=== PATIENT | female | born 1985 | race Caucasian/White ===

== ENCOUNTER 2019-10-07 18:14 | Emergency (ER) | payer SELFPAY ==
[2019-10-07 18:31] VITALS: BP 119/82; PULSE 97; RESP 18; TEMP 36.9; O2SAT 98; BMI 33.6
--- NOTE | 2019-10-07 19:03 | W.ED.HA ---
Documented by User: ALYSSA Ellsworth 10/08/19 13:52 HPI - Headache General: Chief Complaint: Headache Stated Complaint: migraine/throwing up/dizzy Time Seen by Provider: 10/07/19 18:58 History of Present Illness: HPI Narrative: Patient is a 33-year-old female who comes to the ED with a migraine. Patient has a past medical history of having migraines. Migraine started last night and came on slowly and is just progressively gotten worse. She describes the migraine pain 9 out of 10. She says that it is retro-orbital to the right eye. She has photophobia and she sees an aura when she closes her eyes. She has nausea and has been vomiting multiple times today. She says she feels generalized weakness and feels dizzy getting up and walking around due to the headache. Denies any numbness or tingling to extremities or any weakness to particular extremity. Denies any vision changes. Associated symptoms: Deny chest pain, fever(s), nausea, rash or vomiting Review of Systems Const: Denies: fever, chills or fatigue Eyes: Reports: photophobia; Denies: change in vision or eye discomfort ENMT: Denies: throat pain, painful swallowing, nasal discharge or nasal congestion Card: Denies: chest pain, palpitations, edema, swelling of feet/ankles, shortness of breath on exertion or shortness of breath when lying down Resp: Denies: shortness of breath, productive cough or non-productive cough GI: Denies: abdominal pain, nausea, vomiting, diarrhea, constipation or blood in stool : Denies: flank pain, painful urination or blood in urine Musc: Denies: neck pain, back pain or extremity swelling Skin/Breast: Denies: rash or new lesion Neuro: Reports: headache (migraine 9 out of 10); Denies: numbness in extremities or weakness in extremities [facility] ED PFSH: Social History Smoking and tobacco status: never smoked Physical Exam Narrative: EXAM NARRATIVE: Patient is a 33-year-old female who is sitting with sunglasses on when I entered the room. Const: COMMON NORMALS: oriented x3 HENMT: COMMON NORMALS: normocephalic HEAD & SCALP: normocephalic MOUTH: oral and palatal mucosa normal THROAT: posterior oropharynx normal and uvula midline Eye: COMMON NORMALS: PERRL, EOMs intact bilaterally and normal visual [place] by confrontation PUPIL: Yes PERRL Neck/C-Spine: COMMON NORMALS: supple GENERAL: Yes normal visual inspection Resp: COMMON NORMALS: normal respiratory effort, no retractions, no use of accessory muscles and clear to auscultation bilaterally AUSCULTATION: clear to auscultation bilaterally Cardio: COMMON NORMALS: regular rate, regular rhythm, S1 normal heart sound, S2 normal heart sound, no gallops, no clicks, no murmurs and peripheral pulses 2+ throughout RATE: regular rate RHYTHM: regular rhythm HEART SOUNDS: S1 normal and S2 normal PERIPHERAL PULSES: pulses 2+ throughout GI: COMMON NORMALS: normal to inspection, nondistended, normoactive bowel sounds, soft to palpation, non-tender and no masses PALPATION: Yes soft : COMMON NORMALS: Yes no CVA tenderness BLADDER/KIDNEY EXAM: Yes no CVA tenderness Back/Pelvis: COMMON NORMALS: no CVA tenderness Extremity: COMMON NORMALS: normal to inspection Neuro: COMMON NORMALS: oriented x3, CN's II-XII intact bilaterally, moves all extremities, no focal motor deficits and no sensory deficits noted SENSORY EXAM: Yes extremities (intact) MOTOR EXAM: strength 5/5 throughout Skin: COMMON NORMALS: no rashes or lesions noted GENERAL SKIN EXAM: no rashes or lesions noted and dry skin Course Reevaluation(s): Reevaluation #1: I checked on the patient and had her reevaluate her migraine after treatment. Patient says her migraine has improved greatly and now she rates it a 1 out of 10. It was initially a 9 out of 10 when she came in. Time: 20:20 Vital Signs: Vital signs: Vital Signs Temperature 98.4 F 10/07/19 18:31 Pulse Rate 82 10/07/19 20:28 Respiratory Rate 18 10/07/19 20:28 Blood Pressure 136/74 10/07/19 20:28 Pulse Oximetry 98 10/07/19 20:28 Discharge Plan Discharge Patient Disposition: Home, Self-Care Clinical Impression: Migraine Qualifiers: Migraine type: with aura Status migrainosus presence: without status migrainosus Intractability: not intractable Qualified Code(s): G43.109 - Migraine with aura, not intractable, without status migrainosus Condition: Stable Discharge Orders: Discharge Order (Routine); Ordered 10/07/19 Ordered By: Chavo Germain Referrals: Norma Reyna DO [Primary Care Provider] - Discharge Diet: Regular Discharge Activity: Resume usual activity Patient Instructions: Headache - Migraine (Adult) Activity Restrictions/Additional Instructions: Follow-up with your PCP in 5 to 7 days for reevaluation. Go home and rest tonight. Take any Tylenol or ibuprofen for any headaches. Drink plenty of fluids and stay hydrated. Return to the ED if symptoms worsen. Discharge Date/Time: 10/07/19 20:30 Coding Level of Care Code ED Quality Control Inspector for Chg Fwd Exam Comprehensive Documented by User: Lucille Beck 10/08/19 17:29 HPI - Headache General: Chief Complaint: Headache Stated Complaint: migraine/throwing up/dizzy Time Seen by Provider: 10/07/19 18:58 PFSH ED PFSH: Social History Smoking and tobacco status: never smoked Course Vital Signs: Vital signs: Vital Signs Temperature 98.4 F 10/07/19 18:31 Pulse Rate 82 10/07/19 20:28 Respiratory Rate 18 10/07/19 20:28 Blood Pressure 136/74 10/07/19 20:28 Pulse Oximetry 98 10/07/19 20:28 MDM - Headache MDM Narrative: Medical decision making narrative: This patient was not seen by me nor evaluated by me nor discussed with me by the midlevel provider. I was available in the ER if needed throughout their stay but was not involved or contacted about their care. I am signing this chart per hospital policy ? Dr. Beck. Discharge Plan Discharge Patient Disposition: Home, Self-Care Clinical Impression: Migraine Qualifiers: Migraine type: with aura Status migrainosus presence: without status migrainosus Intractability: not intractable Qualified Code(s): G43.109 - Migraine with aura, not intractable, without status migrainosus Condition: Stable Discharge Orders: Discharge Order (Routine); Ordered 10/07/19 Ordered By: Chavo Germain Referrals: Norma Reyna DO [Primary Care Provider] - Discharge Diet: Regular Discharge Activity: Resume usual activity Patient Instructions: Headache - Migraine (Adult) Activity Restrictions/Additional Instructions: Follow-up with your PCP in 5 to 7 days for reevaluation. Go home and rest tonight. Take any Tylenol or ibuprofen for any headaches. Drink plenty of fluids and stay hydrated. Return to the ED if symptoms worsen. Discharge Date/Time: 10/07/19 20:30 Coding Level of Care Code ED Quality Control Inspector for Kyle Fwsydnee Exam Comprehensive
[2019-10-07] MEDS: sodium chloride 0.9% 1,000 ML 999 ML IV (19:34)
[2019-10-07] MEDS: metoclopramide 5 mg/mL SDV 2 mL 10 MG IVP (19:36)
[2019-10-07] MEDS: dexamethasone 10 mg/mL INJ IVP (19:37)
[2019-10-07] MEDS: ketorolac 30 mg/mL INJ IVP (19:37)
[2019-10-07] MEDS: diphenhydrAMINE 50 mg/mL SDV 1mL 25 MG IVP (19:37)
[2019-10-07 20:28] VITALS: BP 136/74; PULSE 82; RESP 18; O2SAT 98
== END 2019-10-07 20:30 | disposition home or self-care (01) ==
LOC: ER 19:30
PROVIDERS: Emergency Provider Physician Assistant; Family Provider Family Medicine; PCP Family Medicine
DX: G43.909 Migraine, unspecified, not intractable, without status migrainosus (principal)
CPT/HCPCS: 12345; 96361; 96374; 96375; 99282; 99283; J1100; J1200; J1885; J2765; J7030

== ENCOUNTER 2020-06-25 04:45 | Emergency (ER) | payer SELFPAY ==
[2020-06-25 04:59] VITALS: BP 123/91; PULSE 82; RESP 19; TEMP 36.4; O2SAT 100; BMI 33.6
--- NOTE | 2020-06-25 05:10 | XRR_ITS ---
PROCEDURE INFORMATION: Exam: XR Chest, 1 View Exam date and time: 06/25/2020 5:37 AM Age: 34 years old Clinical indication: Cough; Additional info: Cough, covid R/O TECHNIQUE: Imaging protocol: XR of the chest Views: 1 view. COMPARISON: CR Chest 2 views* [id number] 09/19/2018 10:35 AM FINDINGS: Lungs: Unremarkable. No consolidation. Pleural space: Unremarkable. No pleural effusion. No pneumothorax. Heart/Mediastinum: Unremarkable. No cardiomegaly. Bones/joints: Unremarkable. XR/XR chest 1V portable [id number] IMPRESSION: No acute findings.
--- NOTE | 2020-06-25 05:12 | ED_ITS ---
Documented by User: Huong Garcia MD 06/27/20 06:14 HPI - COVID General: Chief Complaint: COVID symptoms Stated Complaint: Cov symtoms Time Seen by Provider: 06/25/20 04:59 Triage information: Has fever, cough or shortness of breath . No known COVID + exposure last 14 days History of Present Illness: HPI Narrative: This patient is a 34-year-old female who presents today with cough. She developed body aches, fever cough, diarrhea starting on Monday night. On Monday she had worsening cough and shortness of breath. She feels like she cannot breathe. She feels like she is going through up from coughing so hard. She has not had any known exposures to Covid. She is not a smoker. She does not have any history of diabetes or hypertension. She does get bronchitis frequently and has had to use inhalers in the past. complaint: has COVID symptoms Prior covid testing: no COVID 19 common symptoms: positive fever(s), chills, cough, non-productive cough, dyspnea, fatigue, body aches, headache(s) and diarrhea COVID 19 other sytmptoms: positive chest pain Onset (ago): day(s) (5) Severity: moderate COVID Results: Nasal/Oral Coronavirus 2019 PCR Pending 06/25/20 05:34 06/25/20 Review of Systems General: Reports: 10 or more systems reviewed and unremarkable except in HPI and below Const: Reports: fever(s), chills, body aches and fatigue Eyes: Denies: change in vision ENMT: Denies: odynophagia Card: Reports: chest pain Resp: Reports: dyspnea and non-productive cough GI: Reports: diarrhea : Denies: flank pain or difficulty voiding Musc: Denies: neck pain or back pain Skin/Breast: Denies: rash Neuro: Reports: headache(s) Pete/Lymph: Denies: easy bruising or easy bleeding PFSH ED PFSH: Social History Smoking and tobacco status: never smoked Physical Exam Const: COMMON NORMALS: no acute distress, patient oriented x3, no limitations and alert GENERAL APPEARANCE: cooperative and comfortable HENMT: HEAD & SCALP: normal to inspection FACE & SINUS: normal facial exam Eye: GENERAL EYE: appearance normal, both eyes and all related structures Neck/C-Spine: COMMON NORMALS: supple, no meningeal signs and no JVD Chest: COMMONS NORMALS: normal inspection of the chest Resp: COMMON NORMALS: normal respiratory effort, No use of accessory muscles and clear to auscultation bilaterally AUSCULTATION: clear to auscultation bilaterally Cardio: COMMON NORMALS: no JVD, regular rate, regular rhythm and No murmurs present (Cardio) RATE: regular rate RHYTHM: regular rhythm GI: COMMON NORMALS: Normal to inspection, nondistended, normoactive bowel sounds present, Soft to palpation and non-tender INSPECTION: Yes normal to inspection AUSCULTATION: Yes normoactive bowel sounds PALPATION: Yes Soft to palpation Back/Pelvis: COMMON NORMALS: thoracic and lumbar spine normal to inspection Extremity: COMMON NORMALS: normal to inspection Neuro: COMMON NORMALS: patient oriented x3, moves all extremities, no focal motor deficits and no sensory deficits noted SENSORIUM/ORIENTATION: Yes alert MENINGEAL SIGNS: Yes no meningeal signs Psych: COMMON NORMALS: mental status grossly normal, cooperative and normal affect Skin: COMMON NORMALS: no rashes or lesions noted and turgor normal GENERAL SKIN EXAM: no rashes or lesions noted and turgor normal Course Vital Signs: Vital signs: Vital Signs Temperature 97.6 F 06/25/20 04:59 Pulse Rate 97 06/25/20 06:35 Respiratory Rate 18 06/25/20 05:35 Blood Pressure 130/81 06/25/20 06:35 Pulse Oximetry 98 06/25/20 06:35 MDM - COVID 2 Lab Data: Labs: Lab Results 06/25/20 06/25/20 06/25/20 Range/Units 05:34 05:34 05:34 WBC 4.9 (4.0-10.0) 10^3/ uL RBC 5.28 (4.1-5.3) 10^6/u L Hgb 15.4 H (11.5-15.3) g/dL Hct 45.9 (37.0-47.0) % MCV 86.9 (81-99) fL MCH 29.2 (28.0-34.0) pg MCHC 33.6 (30.0-36.0) g/dL RDW 13.0 (12.1-15.1) % Plt Count 294 (130-400) 10^3/c mm MPV 11.4 H (7.4-10.4) fL Neut % (Auto) 49.6 % Lymph % (Auto) 41.1 % [place] % (Auto) 6.7 % Eos % (Auto) 1.8 % Baso % (Auto) 0.6 % Neut # (Auto) 2.43 (1.8-7.7) 10^3/u L Lymph # (Auto) 2.0 (0.8-4.8) 10^3/u L [place] # (Auto) 0.3 (0.2-0.9) 10^3/u L Eos # (Auto) 0.1 (0.0-0.8) 10^3/u L Baso # (Auto) 0.0 (0.0-0.1) 10^3/u L Nucleated RBC % (a uto) 0 % Nucleated RBCs # 0.0 /100WBC Sodium 139 (136-145) mmol/L Potassium 4.0 (3.5-5.1) mmol/L Chloride 104 (98-107) mmol/L Carbon Dioxide 23 (22-29) mmol/L Anion Gap 16.0 (5-19) BUN 10 (6-20) mg/dL Creatinine 0.8 (0.5-0.9) mg/dL GFR Calculation 82.1 L (90-130) mL/min Glucose 113 (65-115) mg/dL Calculated Osmolal ity 288 (285-295) mOsm/k g Lactic Acid 1.5 (0.5-2.2) mmol/L Calcium 9.6 (8.5-10.5) mg/dL Total Bilirubin 0.2 (0.15-1.2) mg/dL AST 24 (0-32) U/L ALT 46 H (0-33) U/L Alkaline Phosphata se 161 H (35-105) IU/L C-Reactive Protein 5.7 H (0.0-4.9) mg/L Total Protein 7.9 (6.6-8.7) g/dL Albumin 4.5 (3.5-5.2) g/dL Globulin 3.4 (1.3-4.6) g/dL HCG, Qual (Negative) Influenza Type A A g (Negative) Influenza Type B A g (Negative) 06/25/20 06/25/20 Range/Units 05:34 05:34 WBC (4.0-10.0) 10^3/ uL RBC (4.1-5.3) 10^6/u L Hgb (11.5-15.3) g/dL Hct (37.0-47.0) % MCV (81-99) fL MCH (28.0-34.0) pg MCHC (30.0-36.0) g/dL RDW (12.1-15.1) % Plt Count (130-400) 10^3/c mm MPV (7.4-10.4) fL Neut % (Auto) % Lymph % (Auto) % [place] % (Auto) % Eos % (Auto) % Baso % (Auto) % Neut # (Auto) (1.8-7.7) 10^3/u L Lymph # (Auto) (0.8-4.8) 10^3/u L [place] # (Auto) (0.2-0.9) 10^3/u L Eos # (Auto) (0.0-0.8) 10^3/u L Baso # (Auto) (0.0-0.1) 10^3/u L Nucleated RBC % (a uto) % Nucleated RBCs # /100WBC Sodium (136-145) mmol/L Potassium (3.5-5.1) mmol/L Chloride (98-107) mmol/L Carbon Dioxide (22-29) mmol/L Anion Gap (5-19) BUN (6-20) mg/dL Creatinine (0.5-0.9) mg/dL GFR Calculation (90-130) mL/min Glucose (65-115) mg/dL Calculated Osmolal ity (285-295) mOsm/k g Lactic Acid (0.5-2.2) mmol/L Calcium (8.5-10.5) mg/dL Total Bilirubin (0.15-1.2) mg/dL AST (0-32) U/L ALT (0-33) U/L Alkaline Phosphata se (35-105) IU/L C-Reactive Protein (0.0-4.9) mg/L Total Protein (6.6-8.7) g/dL Albumin (3.5-5.2) g/dL Globulin (1.3-4.6) g/dL HCG, Qual Negative (Negative) Influenza Type A A g Negative (Negative) Influenza Type B A g Negative (Negative) COVID Results: Nasal/Oral Coronavirus 2019 PCR Pending 06/25/20 05:34 06/25/20 Discharge Plan Discharge Patient Disposition: Home Clinical Impression: Suspected COVID-19 virus infection Upper respiratory infection Qualifiers: URI type: unspecified URI Qualified Code(s): J06.9 - Acute upper respiratory infection, unspecified Condition: Stable Prescriptions: New albuterol sulfate 90 mcg/actuation HFA aerosol inhaler 2 inh INHALATION Q4H PRN (Reason: shortness of breath or wheezing) Qty: 18 RF: 0 Discharge Orders: Discharge Order (Routine); Ordered 06/25/20 Ordered By: Rasheed Macias Referrals: Norma Reyna DO [Primary Care Provider] - Discharge Diet: Usual diet Discharge Activity: Resume usual activity Patient Instructions: Upper Respiratory Infection (ED) Activity Restrictions/Additional Instructions: Remain in self quarantine until the results of your COVID-19 testing have returned. Return if you have worsening symptoms. Coding Level of Care Code ED Diesel Automotive Technician for Chg Fwd Exam Comprehensive Documented by User: Rasheed Macias DO 06/25/20 06:30 HPI - COVID General: Chief Complaint: COVID symptoms Stated Complaint: Cov symtoms Time Seen by Provider: 06/25/20 04:59 COVID Results: Nasal/Oral Coronavirus 2019 PCR Pending 06/25/20 05:34 06/25/20 PFSH ED PFSH: Social History Smoking and tobacco status: never smoked Physical Exam Const: COMMON NORMALS: no acute distress GENERAL APPEARANCE: cooperative a nd comfortable ORIENTATION/CONSCIOUSNESS: Yes awake, Yes oriented to person, Yes oriented to place and Yes oriented to time HENMT: COMMON NORMALS: normocephalic, atraumatic and hearing grossly normal bilaterally HEAD & SCALP: normocephalic and atraumatic Neck/C-Spine: COMMON NORMALS: no JVD Resp: COMMON NORMALS: normal respiratory effort, No retractions, No use of accessory muscles and clear to auscultation bilaterally AUSCULTATION: clear to auscultation bilaterally Cardio: COMMON NORMALS: no JVD, regular rate, regular rhythm and No murmurs present (Cardio) RATE: regular rate RHYTHM: regular rhythm Extremity: COMMON NORMALS: normal to inspection, capillary refill normal, no clubbing, cyanosis or edema, no calf tenderness and no pedal edema Neuro: SENSORIUM/ORIENTATION: Yes oriented to person, Yes oriented to place and Yes oriented to time Skin: COMMON NORMALS: no rashes or lesions noted GENERAL SKIN EXAM: no rashes or lesions noted Course Vital Signs: Vital signs: Vital Signs Temperature 97.6 F 06/25/20 04:59 Pulse Rate 97 06/25/20 06:35 Respiratory Rate 18 06/25/20 05:35 Blood Pressure 130/81 06/25/20 06:35 Pulse Oximetry 98 06/25/20 06:35 MDM - COVID MDM Narrative: Medical decision making narrative: Care assumed a change of shift from Dr. Kaufman. Labs and x-ray reviewed. Chest with Kerlix gauze there is no infiltrate Covid PCR is pending sats remain good. We will go ahead and discharge patient home to self quarantine. Albuterol inhaler as needed return if has worsening problems with breathing. Follow-up with primary care early next week, call for appointment. Lab Data: Labs: Lab Results 06/25/20 06/25/20 06/25/20 Range/Units 05:34 05:34 05:34 WBC 4.9 (4.0-10.0) 10^3/ uL RBC 5.28 (4.1-5.3) 10^6/u L Hgb 15.4 H (11.5-15.3) g/dL Hct 45.9 (37.0-47.0) % MCV 86.9 (81-99) fL MCH 29.2 (28.0-34.0) pg MCHC 33.6 (30.0-36.0) g/dL RDW 13.0 (12.1-15.1) % Plt Count 294 (130-400) 10^3/c mm MPV 11.4 H (7.4-10.4) fL Neut % (Auto) 49.6 % Lymph % (Auto) 41.1 % [place] % (Auto) 6.7 % Eos % (Auto) 1.8 % Baso % (Auto) 0.6 % Neut # (Auto) 2.43 (1.8-7.7) 10^3/u L Lymph # (Auto) 2.0 (0.8-4.8) 10^3/u L [place] # (Auto) 0.3 (0.2-0.9) 10^3/u L Eos # (Auto) 0.1 (0.0-0.8) 10^3/u L Baso # (Auto) 0.0 (0.0-0.1) 10^3/u L Nucleated RBC % (a uto) 0 % Nucleated RBCs # 0.0 /100WBC Sodium 139 (136-145) mmol/L Potassium 4.0 (3.5-5.1) mmol/L Chloride 104 (98-107) mmol/L Carbon Dioxide 23 (22-29) mmol/L Anion Gap 16.0 (5-19) BUN 10 (6-20) mg/dL Creatinine 0.8 (0.5-0.9) mg/dL GFR Calculation 82.1 L (90-130) mL/min Glucose 113 (65-115) mg/dL Calculated Osmolal ity 288 (285-295) mOsm/k g Lactic Acid 1.5 (0.5-2.2) mmol/L Calcium 9.6 (8.5-10.5) mg/dL Total Bilirubin 0.2 (0.15-1.2) mg/dL AST 24 (0-32) U/L ALT 46 H (0-33) U/L Alkaline Phosphata se 161 H (35-105) IU/L C-Reactive Protein 5.7 H (0.0-4.9) mg/L Total Protein 7.9 (6.6-8.7) g/dL Albumin 4.5 (3.5-5.2) g/dL Globulin 3.4 (1.3-4.6) g/dL HCG, Qual (Negative) Influenza Type A A g (Negative) Influenza Type B A g (Negative) 06/25/20 06/25/20 Range/Units 05:34 05:34 WBC (4.0-10.0) 10^3/ uL RBC (4.1-5.3) 10^6/u L Hgb (11.5-15.3) g/dL Hct (37.0-47.0) % MCV (81-99) fL MCH (28.0-34.0) pg MCHC (30.0-36.0) g/dL RDW (12.1-15.1) % Plt Count (130-400) 10^3/c mm MPV (7.4-10.4) fL Neut % (Auto) % Lymph % (Auto) % [place] % (Auto) % Eos % (Auto) % Baso % (Auto) % Neut # (Auto) (1.8-7.7) 10^3/u L Lymph # (Auto) (0.8-4.8) 10^3/u L [place] # (Auto) (0.2-0.9) 10^3/u L Eos # (Auto) (0.0-0.8) 10^3/u L Baso # (Auto) (0.0-0.1) 10^3/u L Nucleated RBC % (a uto) % Nucleated RBCs # /100WBC Sodium (136-145) mmol/L Potassium (3.5-5.1) mmol/L Chloride (98-107) mmol/L Carbon Dioxide (22-29) mmol/L Anion Gap (5-19) BUN (6-20) mg/dL Creatinine (0.5-0.9) mg/dL GFR Calculation (90-130) mL/min Glucose (65-115) mg/dL Calculated Osmolal ity (285-295) mOsm/k g Lactic Acid (0.5-2.2) mmol/L Calcium (8.5-10.5) mg/dL Total Bilirubin (0.15-1.2) mg/dL AST (0-32) U/L ALT (0-33) U/L Alkaline Phosphata se (35-105) IU/L C-Reactive Protein (0.0-4.9) mg/L Total Protein (6.6-8.7) g/dL Albumin (3.5-5.2) g/dL Globulin (1.3-4.6) g/dL HCG, Qual Negative (Negative) Influenza Type A A g Negative (Negative) Influenza Type B A g Negative (Negative) COVID Results: Nasal/Oral Coronavirus 2019 PCR Pending 06/25/20 05:34 06/25/20 Discharge Plan Discharge Patient Disposition: Home Clinical Impression: Suspected COVID-19 virus infection Upper respiratory infection Qualifiers: URI type: unspecified URI Qualified Code(s): J06.9 - Acute upper respiratory infection, unspecified Condition: Stable Prescriptions: New albuterol sulfate 90 mcg/actuation HFA aerosol inhaler 2 inh INHALATION Q4H PRN (Reason: shortness of breath or wheezing) Qty: 18 RF: 0 Discharge Orders: Discharge Order (Routine); Ordered 06/25/20 Ordered By: Rasheed Macias Referrals: Norma Reyna DO [Primary Care Provider] - Discharge Diet: Usual diet Discharge Activity: Resume usual activity Patient Instructions: Upper Respiratory Infection (ED) Activity Restrictions/Additional Instructions: Remain in self quarantine until the results of your COVID-19 testing have returned. Return if you have worsening symptoms. Coding Level of Care Code ED Diesel Automotive Technician for Kyle Fwd Exam Comprehensive
[2020-06-25 05:35] VITALS: PULSE 99; RESP 18; O2SAT 99
[2020-06-25] MEDS: albuterol 8 gm MDI 2 PUFF INHALATION (05:35)
[2020-06-25 05:40] VITALS: PULSE 101
[2020-06-25 05:44] VITALS: O2SAT 100
[2020-06-25 05:46] LABS: Basophils % 0.6 %; Eosinophils # 0.1 10^3/uL (0.0-0.8); Eosinophils % 1.8 %; Hematocrit 45.9 % (37.0-47.0); Hemoglobin 15.4 g/dL (11.5-15.3); Lymphocytes % 41.1 %; Mean Corpuscular HGB Conc 33.6 g/dL (30.0-36.0); Mean Corpuscular Hemoglobin 29.2 pg (28.0-34.0); Mean Corpuscular Volume 86.9 fL (81-99); Mean Platelet Volume 11.4 fL (7.4-10.4); Monocytes # 0.3 10^3/uL (0.2-0.9); Monocytes % 6.7 %; Neutrophils # 2.43 10^3/uL (1.8-7.7); Neutrophils % 49.6 %; Nucleated Red Blood Cells % 0 %; Platelet Count 294 10^3/cmm (130-400); Red Blood Count 5.28 10^6/uL (4.1-5.3); White Blood Count 4.9 10^3/uL (4.0-10.0)
[2020-06-25 06:03] LABS: Alanine Aminotransferase 46 U/L (0-33); Albumin Level 4.5 g/dL (3.5-5.2); Alkaline Phosphatase 161 IU/L (35-105); Aspartate Amino Transferase 24 U/L (0-32); Blood Urea Nitrogen 10 mg/dL (6-20); C Reactive Protein 5.7 mg/L (0.0-4.9); Calcium 9.6 mg/dL (8.5-10.5); Carbon Dioxide 23 mmol/L (22-29); Chloride 104 mmol/L (98-107); Globulin 3.4 g/dL (1.3-4.6); Glomerular Filtration Rate 82.1 mL/min (90-130); Glucose 113 mg/dL (65-115); Osmolality Calculated 288 mOsm/kg (285-295); Sodium 139 mmol/L (136-145); Total Bilirubin 0.2 mg/dL (0.15-1.2); Total Protein 7.9 g/dL (6.6-8.7)
[2020-06-25 06:04] LABS: Lactic Sepsis W/Reflex 1.5 mmol/L (0.5-2.2)
[2020-06-25 06:05] LABS: Influenza A by IFA Negative (Negative); Influenza B by IFA Negative (Negative)
[2020-06-25 06:08] LABS: HCG, Serum Qual Negative (Negative)
[2020-06-25 06:35] VITALS: BP 130/81; PULSE 97; O2SAT 98
[2020-06-29 07:33] LABS: Coronavirus Lab Test PTC Positive
== END 2020-06-25 06:35 | disposition home or self-care (01) ==
PROVIDERS: Emergency Medicine; Emergency Provider Family Medicine; PCP Family Medicine
DX: U07.1 COVID-19 (principal)
CPT/HCPCS: 12345; 71045; 80053; 83605; 84703; 85025; 86140; 87635; 87804; 94640; 99282; 99283; J3535

== ENCOUNTER 2021-01-28 14:40 | Emergency (ER) | payer SELFPAY ==
[2021-01-28 15:01] VITALS: BP 109/73; PULSE 101; RESP 14; TEMP 37.1; O2SAT 95; BMI 33.5
--- NOTE | 2021-01-28 15:08 | ED_ITS ---
HPI - Skin/Abscess/Foreign Bdy General: Chief complaint: General Medical Stated complaint: pain under left rib, red large spot, N/V Time Seen by Provider: 01/28/21 15:07 Source: patient Mode of arrival: ambulatory Limitations: no limitations History of Present Illness: HPI narrative: Patient is a 35-year-old female who presents to ED today with complaint of a possible abscess under or near her left breast. Patient tells me she initially noticed a small red spot about 3 days ago. She was seen at urgent care yesterday and placed on Clindamycin. Patient tells me immediately after her first dose she began feeling sick to her stomach and vomited. Patient vomited again after her dose this morning. She states lesion has worsened since yesterday. No drainage. No fevers. No history of staph/MRSA. MD complaint: abscess/boil Onset (ago): day(s) Tetanus up to date: yes Location: chest Severity: moderate Quality: burning Pain Consistency: constant Relieving factors: none Exacerbating factors: none Context: none Associated symptoms: Reports nausea and vomiting; Deny chills or fever(s) Treatments prior to arrival: antibiotic Review of Systems 2 Const: Denies: fever(s), chills, body aches, fatigue or malaise Card: Denies: chest pain Resp: Denies: dyspnea GI: Reports: nausea and vomiting; Denies: abdominal pain, hematemesis or diarrhea Skin/Breast: Reports: new lesions Neuro: Denies: headache(s) PFSH ED PFSH: Social History Smoking and tobacco status: never smoked Physical Exam Const: COMMON NORMALS: no acute distress, patient oriented x3, no limitations, alert and well nourished GENERAL APPEARANCE: cooperative ORIENTATION/CONSCIOUSNESS: Yes awake, Yes oriented to person, Yes oriented to place and Yes oriented to time Chest: Chest images (female): 1. erythematous indurated lesion measuring approximately 6 x3 cm; small hemorrhagic center; there is no drainage or fluctuance Resp: COMMON NORMALS: normal respiratory effort and clear to auscultation bilaterally AUSCULTATION: clear to auscultation bilaterally Cardio: COMMON NORMALS: regular rate and regular rhythm RATE: regular rate RHYTHM: regular rhythm Neuro: COMMON NORMALS: patient oriented x3 SENSORIUM/ORIENTATION: Yes alert, Yes oriented to person, Yes oriented to place and Yes oriented to time Skin: NARRATIVE SKIN EXAM: see chest wall assessment for pertinent skin findings Course Vital Signs: Vital signs: Vital Signs Temperature 98.7 F 01/28/21 15:01 Pulse Rate 101 H 01/28/21 15:01 Respiratory Rate 14 01/28/21 15:01 Blood Pressure 109/73 01/28/21 15:01 Pulse Oximetry 95 01/28/21 15:01 MDM - Skin/Abscess/Foreign Bdy MDM Narrative: Medical decision making narrative: Patient's nausea/vomiting most likely secondary to Clindamycin. She has an allergy to Bactrim. Will place her on Doxycycline and give nausea meds in case this persists. Lesion not amendable to I&D at this time. It is not draining. No culture obtained. Discharge Plan Discharge Patient Disposition: Home Clinical Impression: Abscess of chest wall Condition: Stable Prescriptions: New doxycycline monohydrate 100 mg capsule 100 mg PO Q12H 10 Days Qty: 20 RF: 0 promethazine 25 mg tablet 25 mg PO Q6H PRN (Reason: nausea and vomiting) Qty: 14 RF: 0 Discontinued clindamycin HCl 150 mg capsule 450 mg PO TID 7 Days Qty: 63 RF: 0 No Action albuterol sulfate 90 mcg/actuation HFA aerosol inhaler 2 inh INHALATION Q4H PRN (Reason: shortness of breath or wheezing) Qty: 18 RF: 0 Discharge Orders: Discharge ED (Routine); Ordered 01/28/21 Ordered By: Evelyn Cedillo Referrals: Norma Reyna DO [Primary Care Provider] - Patient Instructions: Abscess (ED) Activity Restrictions/Additional Instructions: Fill your antibiotics and get started on them immediately. Monitor for w orsening pain, redness, drainage, fevers, or any other concerns you may have. Please seek medical reevaluation of these occur. Coding Level of Care Code ED Timber Incisor Operator for Kyle Mohr
--- NOTE | 2021-01-28 15:12 | PC.NURSE ---
addendum to triage/ nursing assessment by this RN, pt has been having nausea and unable to keep down Clindamycin.
[2021-01-28] MEDS: cefTRIAXone 1,000 MG in lidocaine 1% 2.1 ML 1 MG IM (15:43)
== END 2021-01-28 15:47 | disposition home or self-care (01) ==
PROVIDERS: Emergency Provider Physician Assistant; PCP Family Medicine
DX: L02.213 Cutaneous abscess of chest wall (principal)
CPT/HCPCS: 96372; 99283; J0696

== ENCOUNTER 2021-12-30 07:54 | Emergency (ER) | payer SELFPAY ==
[2021-12-30 08:03] VITALS: BP 151/79; PULSE 108; RESP 16; TEMP 36.7; O2SAT 98; BMI 35.4
--- NOTE | 2021-12-30 08:26 | ED_ITS ---
HPI - General Adult General: Chief complaint: General Medical Stated complaint: facial swelling Time Seen by Provider: 12/30/21 07:56 Source: patient Mode of arrival: ambulatory Limitations: no limitations History of Present Illness: 36-year-old female complaining of facial pain and pressure swelling particularly of her left upper lip and left cheek. No trauma. She does have significant dental defect she has not been having any definitive care through. This began over the last 3 days. No facial rash. No fever sweats or chills. She has noticed some swelling along the gumline in the right upper molar and premolar area and tenderness there as well. Onset (ago): day(s) (3) Location: face Radiation: non-radiation Severity: mild Quality: aching Pain Consistency: constant Relieving factors: none Exacerbating factors: none Associated symptoms: Deny chest pain, confusion, cough, diaphoresis, decreased appetite, dyspnea, fevers/chills, headache(s), malaise, nausea, rash, palpitations, seizures, short of breath, syncope, vomiting or weakness Review of Systems Const: Denies: fever(s), chills, body aches, change in appetite, fatigue, malaise or diaphoresis ENMT: Denies: throat pain, ear or mastoid pain, nasal discharge or nasal congestion Card: Denies: chest pain, palpitations or syncope Resp: Denies: dyspnea GI: Denies: abdominal pain, nausea, vomiting, hematemesis, coffee ground emesis, dysphagia or GI cramping : Denies: flank pain, difficulty voiding, dysuria, urinary frequency or urinary urgency Musc: Denies: neck pain Skin/Breast: Denies: rash, pruritus or erythema Neuro: Denies: headache(s) or confusion PFSH ED PFSH: Medical History (Updated 12/30/21 @ 08:29 by Rasheed Macias DO) Dental caries Surgical History (Updated 12/30/21 @ 08:29 by Rasheed Macias DO) No pertinent past surgical history Social History Smoking and tobacco status: never smoked Second hand smoke exposure: Yes Alcohol intake: current Alcohol intake frequency: holidays/special occasions only Caregiver/support person: Yes Lives independently: Yes Household members: spouse and children Marital status: service: No Current occupational status: employed History of recent travel: No Current gender identity: Female Special helena needs: No Agree to transfusion: Yes Physical Exam Const: COMMON NORMALS: no acute distress GENERAL APPEARANCE: cooperative and comfortable ORIENTATION/CONSCIOUSNESS: Yes awake, Yes oriented to person, Yes oriented to place and Yes oriented to time HENMT: COMMON NORMALS: normocephalic, atraumatic, hearing grossly normal bilaterally, external ears normal, EAC's normal, TM's normal bilaterally, Normal nasal mucous membranes and turbinates present, moist oral mucous membranes and oropharynx normal HEAD & SCALP: normocephalic and atraumatic NOSE: Normal nasal mucous membranes and turbinates present EXTERNAL EAR: Yes external ears normal EXTERNAL AUDITORY CANAL: EAC's normal TYMPANIC MEMBRANE: TM's normal bilaterally TEETH & GINGIVA: Yes abnormal tooth and associated gingiva (First molar on the left maxilla is significantly eroded with what appears t) TEETH & GINGIVA IMAGES: 1. Neck/C-Spine: COMMON NORMALS: no JVD Resp: COMMON NORMALS: normal respiratory effort, No retractions, No use of accessory muscles and clear to auscultation bilaterally AUSCULTATION: clear to auscultation bilaterally Cardio: COMMON NORMALS: no JVD, regular rate, regular rhythm and No murmurs present (Cardio) RATE: regular rate RHYTHM: regular rhythm Extremity: COMMON NORMALS: normal to inspection, capillary refill normal, no clubbing, cyanosis or edema, no calf tenderness and no pedal edema Neuro: SENSORIUM/ORIENTATION: Yes oriented to person, Yes oriented to place and Yes oriented to time Skin: COMMON NORMALS: no rashes or lesions noted GENERAL SKIN EXAM: no rashes or lesions noted Course Vital Signs: Vital signs: Vital Signs Temperature 98.0 F 12/30/21 08:03 Pulse Rate 108 H 12/30/21 08:03 Respiratory Rate 16 12/30/21 08:03 Blood Pressure 151/79 12/30/21 08:03 Pulse Oximetry 98 12/30/21 08:03 [facility] - General Adult Medical Decision Making Start Augmentin encourage follow-up with dentist return as needed Medical Records I reviewed the patient's medical records. Lab Data I reviewed the patient's lab results. Discharge Plan Discharge Patient Disposition: Home Clinical Impression: Dental caries Condition: Stable Prescriptions: New amoxicillin-pot clavulanate 875-125 mg tablet 1 tab PO BID Qty: 20 0RF No Action albuterol sulfate 90 mcg/actuation HFA aerosol inhaler 2 inh INHALATION Q4H PRN (Reason: shortness of breath or wheezing) Qty: 18 0RF promethazine 25 mg tablet 25 mg PO Q6H PRN (Reason: nausea and vomiting) Qty: 14 0RF Discharge Orders: Discharge ED (Routine); Ordered 12/30/21 Ordered By: Rasheed Macias Referrals: Norma Reyna, [Primary Care Provider] - Discharge Diet: Advance as tolerated Discharge Activity: Resume usual activity Patient Instructions: Opioid Safety Activity Restrictions/Additional Instructions: Follow-up with dentist as soon as you are able to further evaluate. 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
== END 2021-12-30 08:25 | disposition home or self-care (01) ==
PROVIDERS: Emergency Provider Family Medicine; PCP Family Medicine
DX: K02.9 Dental caries, unspecified (principal)
CPT/HCPCS: 99283

== ENCOUNTER 2024-11-05 16:29 | Emergency (ER) | payer SELFPAY ==
[2024-11-05 16:45] VITALS: BP 130/90; PULSE 96; TEMP 37.1; O2SAT 100; BMI 27.4
[2024-11-05 16:50] LABS: Basophils # 0.1 10^3/uL (0.0-0.1); Basophils % 0.9 %; Eosinophils # 0.1 10^3/uL (0.0-0.8); Eosinophils % 0.8 %; Hematocrit 40.8 % (36-47); Lymphocytes # 2.8 10^3/uL (0.8-4.8); Lymphocytes % 31.8 %; Mean Corpuscular HGB Conc 32.8 g/dL (30-55); Mean Corpuscular Hemoglobin 29.4 pg (27-33); Mean Corpuscular Volume 89.5 fl (85-98); Mean Platelet Volume 10.8 fL (7.4-10.4); Monocytes # 0.6 10^3/uL (0.2-0.9); Monocytes % 6.7 %; Neutrophils # 5.25 10^3/uL (1.8-7.7); Neutrophils % 59.6 %; Nucleated Red Blood Cells % 0 %; Platelet Count 255 10^3/cmm (157-399); Red Blood Count 4.56 10^6/uL (3.85-5.65); Red Cell Distribution Width 12.7 % (12.1-15.1); White Blood Count 8.81 10^3/uL (3.29-11.43)
[2024-11-05 17:06] LABS: Alanine Aminotransferase 16 U/L (0-33); Albumin Level 4.5 g/dL (3.5-5.2); Alkaline Phosphatase 64 U/L (35-105); Anion Gap 15.7 (5-19); Aspartate Amino Transferase 14 U/L (0-32); Blood Urea Nitrogen 20 mg/dL (6-20); Calcium 9.3 mg/dL (8.5-10.5); Carbon Dioxide 20 mmol/L (22-29); Chloride 108 mmol/L (98-107); Creatinine Clr Calc Pharmacy 71.7235; Globulin 2.8 g/dL (1.3-4.6); Glomerular Filtration Rate 62.1 mL/min (90-130); Glucose 92 mg/dL (65-115); Lipase 22 U/L (13-60); Osmolality Calculated 292 mOsm/kg (285-295); Potassium 3.7 mmol/L (3.5-5.1); Sodium 140 mmol/L (136-145); Total Bilirubin 0.5 mg/dL (0.15-1.2); Total Protein 7.3 g/dL (6.6-8.7)
[2024-11-05 18:31] VITALS: BP 125/87; PULSE 92; RESP 16; O2SAT 94
--- NOTE | 2024-11-05 18:33 | CTR_ITS ---
PROCEDURE INFORMATION: Exam: CT Abdomen And Pelvis With Contrast Exam date and time: 11/05/2024 7:29 PM Age: 38 years old Clinical indication: Abdominal pain; Flank; Left; Prior surgery; Surgery date: 6+ months; Surgery type: Gb, csection, partial hysterectomy; Additional info: Left flank, llq pain x3 months TECHNIQUE: Imaging protocol: Computed tomography of the abdomen and pelvis with contrast. Radiation optimization: All CT scans at this facility use at least one of these dose optimization techniques: automated exposure control; mA and/or kV adjustment per patient size (includes targeted exams where dose is matched to clinical indication); or iterative reconstruction. Contrast material: OMNIPAQUE 350; Contrast volume: 100 ml; Contrast route: INTRAVENOUS (IV); COMPARISON: CT abdomen pelvis w con* [id number] 03/10/2019 4:21 PM RADIATION DOSE METRICS: Total DLP (mGy-cm): 438.73 FINDINGS: Liver: Normal. No mass. Gallbladder and biliary ducts: The gallbladder is absent. Pancreas: Normal. No ductal dilation. Spleen: Normal. No splenomegaly. Adrenal glands: Normal. No mass. Kidneys and ureters: Normal. No hydronephrosis. Stomach and bowel: Unremarkable. No obstruction. No mucosal thickening. Appendix: No evidence of appendicitis. Intraperitoneal space: Unremarkable. No free air. No significant fluid collection. Vasculature: Unremarkable. No abdominal aortic aneurysm. Lymph nodes: Unremarkable. No enlarged lymph nodes. Urinary bladder: Unremarkable as visualized. Reproductive: Unremarkable as visualized. Bones/joints: Unremarkable. No acute fracture. Soft tissues: Unremarkable. CT/CT abdomen pelvis w con* [id number] IMPRESSION: 1. No bowel obstruction or inflammatory process associated with the bowel. 2. No free air or significant free fluid in the abdomen or pelvis. 3. No evidence of appendicitis.
--- NOTE | 2024-11-05 18:40 | ED_ITS ---
HPI - Female Genitourinary 2 General: Chief complaint: Urogenital-Female Stated complaint: lt abd pain Time Seen by Provider: 11/05/24 18:26 Source: patient Mode of arrival: ambulatory Limitations: no limitations History of Present Illness: Patient is a 58-year-old female who presents the emergency department complaining of chronic left flank pain. Patient states pain began in July, had imaging done at that time that was unremarkable. States that she has had this worked up with many specialties, and has even had scope done with GI that was unremarkable. States that she has been constantly nauseous since the pain began, and she is mainly concerned that this time the pain is seem to be more constant. Pain made worse by lying flat. Denies any vomiting, dysuria or hematuria, vaginal bleeding or discharge, diarrhea or constipation, or any other symptoms at this time. She states she has been alternating ibuprofen and Tylenol but no relief. Denies known history of kidney stones. History of hysterectomy and has had her gallbladder out. Also has had numerous C-sections. Vitals unremarkable at this time, states that she will intermittently run fevers but currently afebrile. She currently states the pain is a 6/10, and feels like a stabbing sensation. It radiates across to her left lower quadrant. MD elicited complaint: flank pain Pertinent past history: hysterectomy Onset (ago): month(s) Location of symptoms: flank Severity: similar to previous episodes Female Urogenital Radiation: LLQ Severity scale (1-10): 6 Quality of pain: stabbing Consistency: intermittent Vaginal discharge: none Vaginal bleeding: none Exacerbating factors: other (Supine) Relieving factors: other (Seated up) Associated symptoms: Reports abdominal pain and nausea; Deny headache(s) Treatment prior to arrival: acetaminophen and NSAIDs Sexual activity: Yes Patient : No Related Data Previous Rx's ?Medication ?Instructions ?Recorded albuterol sulfate 90 mcg/actuation 2 inh inhalation Q4 H PRN shortness 06/25/20 aerosol inhaler of breath or wheezing #18 gr ams promethazine 25 mg tablet 25 mg PO Q6H PRN nausea and 01/28/21 vomiting #14 tabs amoxicillin 875 mg-potassium 1 tab PO BID #20 tabs 09/21 clavulanate 125 mg tablet Allergies Allergy/AdvReac Type Severity Reaction Status Date / Time sulfamethoxazole (From Allergy ADR-Gastrointestinal Verified 11/05/24 16:50 Bactrim) Upset trimethoprim (From Bactrim) Allergy ADR-Gastrointestinal Verified 11/05/24 16:50 Upset Review of Systems 2 General: Reports: 10 or more systems reviewed and unremarkable except in HPI and below Const: Reports: fever(s); Denies: chills, change in appetite, change in weight or diaphoresis ENMT: Denies: throat pain or hoarseness Card: Denies: chest pain, palpitations or lightheadedness Resp: Denies: dyspnea, productive cough or wheezing GI: Reports: abdominal pain and nausea; Denies: vomiting, diarrhea, constipation, bloating, change in stool character or hematochezia : Reports: flank pain; Denies: difficulty voiding, dysuria, urinary frequency or urinary urgency Musc: Denies: neck pain or back pain Skin/Breast: Denies: rash or new lesions Neuro: Denies: headache(s) or dizziness PFSH ED 2 PFSH: Medical History Dental caries Surgical History No pertinent past surgical history Social History Smoking and tobacco/nicotine status: never used tobacco/nicotine Second hand smoke exposure: Yes Alcohol intake: current Alcohol intake frequency: holidays/special occasions only Substance/Drug Use: never Caregiver/support person: Yes Lives independently: Yes Household members: spouse and children Marital status: service: No Current occupational status: employed Current gender identity: Female Special helena needs: No Agree to transfusion: Yes Physical Exam 2 Const: COMMON NORMALS: no acute distress, average body habitus, patient oriented x3, no limitations, healthy appearing, alert and well nourished G ENERAL APPEARANCE: cooperative and comfortable ORIENTATION/CONSCIOUSNESS: Yes awake HENMT: COMMON NORMALS: normocephalic, atraumatic, hearing grossly normal bilaterally, external ears normal, Normal external nose present, Normal nasal mucous membranes and turbinates present and moist oral mucous membranes HEAD & SCALP: normocephalic and atraumatic NOSE: Normal external nose present and Normal nasal mucous membranes and turbinates present EXTERNAL EAR: Yes external ears normal Eye: COMMON NORMALS: Equal, round and reactive pupils present, EOMs intact bilaterally, conjunctivae normal and normal visual [place] by confrontation C ONJUNCTIVA: Yes conjunctivae normal PUPIL: Yes Equal, round and reactive pupils present Neck/C-Spine: COMMON NORMALS: full ROM, supple, no meningeal signs and no JVD Resp: COMMON NORMALS: normal respiratory effort, No retractions, No use of accessory muscles and clear to auscultation bilaterally AUSCULTATION: clear to auscultation bilaterally, no crackles, no rales, no rhonchi and no wheezes Cardio: COMMON NORMALS: no JVD, regular rate, regular rhythm, S1 normal heart sound present, S2 normal heart sound present, No gallops present (Cardio), No clicks present (Cardio), No murmurs present (Cardio), No rub (Cardio) and Peripheral pulses 2+ throughout RATE: regular rate RHYTHM: regular rhythm HEART SOUNDS: S1 normal heart sound present and S2 normal heart sound present PERIPHERAL PULSES: Peripheral pulses 2+ throughout GI: COMMON NORMALS: Normal to inspection, nondistended, normoactive bowel sounds present, Soft to palpation, No hepatosplenomegaly present and no masses AUSCULTATION: Yes normoactive bowel sounds PALPATION: Yes Soft to palpation, Yes Tenderness to palpation present (GI) Details: LLQ, No Guarding due to palpation present (GI), No Rigid due to palpation and Yes No hepatosplenomegaly present RECTAL EXAM: deferred : BLADDER/KIDNEY EXAM: Yes CVA tenderness on the left Back/Pelvis: GENERAL BACK: Yes CVA tenderness Extremity: COMMON NORMALS: normal to inspection and full ROM Neuro: COMMON NORMALS: patient oriented x3, moves all extremities, no focal motor deficits and no sensory deficits noted SENSORIUM/ORIENTATION: Yes alert MENINGEAL SIGNS: Yes no meningeal signs Psych: COMMON NORMALS: mental status grossly normal, cooperative and speech normal SPEECH: Yes normal speech Skin: COMMON NORMALS: no rashes or lesions noted GENERAL SKIN EXAM: no rashes or lesions noted Course 2 Vital Signs: Vital signs: Vital Signs Temperature 98.8 F 11/05/24 16:45 Pulse Rate 95 11/05/24 19:43 Respiratory Rate 16 11/05/24 19:43 Blood Pressure 105/78 11/05/24 19:43 Pulse Oximetry 100 11/05/24 19:43 Oxygen Delivery Me thod Room Air 11/05/24 19:43 MDM - Female Medical Decision Making Patient presented complaining of left flank pain, stated she has been dealing with this since July. Notes workup with multiple specialties. She was primarily concerned due to the constant nature of the pain that has been bothering her over the past couple days. Associated nausea, however states she is always nauseous. Vitals unremarkable. No urinary symptoms reported, urinalysis did show 2+ bacteria but this did show evidence of squamous cells and with the lack of other infectious parameters and lack of reported urinary symptoms will not treat with for UTI at this time as I do not suspect this is causing her pain. Though there was positive CVA tenderness on exam in the left side, CT was normal did not show any renal findings or evidence of stone. Her lab work was all unremarkable. I do not suspect any acute process, being that she is already in the middle of workup with outpatient specialties will have her continue this and return with any new or worsening. She agrees with this plan, stating pain has improved after receiving IV Toradol here in the ED. Lab Data 11/05/24 16:42 11/05/24 16:42 Radiology Impressions Abdomen/Pelvis CT 11/05/24 18:33 IMPRESSION: 1. No bowel obstruction or inflammatory process associated with the bowel. 2. No free air or significant free fluid in the abdomen or pelvis. 3. No evidence of appendicitis. Laboratory Results WBC 8.81 10^3/uL (3.29-11.43) 11/05/24 16:42 RBC 4.56 10^6/uL (3.85-5.65) 11/05/24 16:42 Hgb 13.40 g/dL (11.27-16.99) 11/05/24 16:42 Hct 40.8 % (36-47) 11/05/24 16:42 MCV 89.5 fl (85-98) 11/05/24 16:42 MCH 29.4 pg (27-33) 11/05/24 16:42 MCHC 32.8 g/dL (30-55) 11/05/24 16:42 RDW 12.7 % (12.1-15.1) 11/05/24 16:42 Plt Count 255 10^3/cmm (157-399) 11/05/24 16:42 MPV 10.8 fL (7.4-10.4) H 11/05/24 16:42 Neut % (Auto) 59.6 % 11/05/24 16:42 Lymph % (Auto) 31.8 % 11/05/24 16:42 [place] % (Auto) 6.7 % 11/05/24 16:42 Eos % (Auto) 0.8 % 11/05/24 16:42 Baso % (Auto) 0.9 % 11/05/24 16:42 Neut # (Auto) 5.25 10^3/uL (1.8-7.7) 11/05/24 16:42 Lymph # (Auto) 2.8 10^3/uL (0.8-4.8) 11/05/24 16:42 Pine # (Auto) 0.6 10^3/uL (0.2-0.9) 11/05/24 16:42 Eos # (Auto) 0.1 10^3/uL (0.0-0.8) 11/05/24 16:42 Baso # (Auto) 0.1 10^3/uL (0.0-0.1) 11/05/24 16:42 Nucleated RBC % (auto) 0 % 11/05/24 16:42 Nucleated RBCs # 0.0 /100WBC 11/05/24 16:42 Sodium 140 mmol/L (136-145) 11/05/24 16:42 Potassium 3.7 mmol/L (3.5-5.1) 11/05/24 16:42 Chloride 108 mmol/L (98-107) H 11/05/24 16:42 Carbon Dioxide 20 mmol/L (22-29) L 11/05/24 16:42 Anion Gap 15.7 (5-19) 11/05/24 16:42 BUN 20 mg/dL (6-20) 11/05/24 16:42 Creatinine 1.0 mg/dL (0.5-0.9) H 11/05/24 16:42 GFR Calculation 62.1 mL/min (90-130) L 11/05/24 16:42 Glucose 92 mg/dL (65-115) 11/05/24 16:42 Calculated Osmolality 292 mOsm/kg (285-295) 11/05/24 16:42 Calcium 9.3 mg/dL (8.5-10.5) 11/05/24 16:42 Total Bilirubin 0.5 mg/dL (0.15-1.2) 11/05/24 16:42 AST 14 U/L (0-32) 11/05/24 16:42 ALT 16 U/L (0-33) 11/05/24 16:42 Alkaline Phosphatase 64 U/L (35-105) 11/05/24 16:42 Total Protein 7.3 g/dL (6.6-8.7) 11/05/24 16:42 Albumin 4.5 g/dL (3.5-5.2) 11/05/24 16:42 Globulin 2.8 g/dL (1.3-4.6) 11/05/24 16:42 Lipase 22 U/L (13-60) 11/05/24 16:42 Urine Color Yellow (Yellow) 11/05/24 18:27 Urine Appearance Clear (CLEAR) 11/05/24 18:27 Urine pH 5 (5-7) 11/05/24 18:27 Ur Specific [place] 1.025 (1.005-1.030) 11/05/24 18:27 Urine Protein Trace (Negative) H 11/05/24 18:27 Urine Glucose (UA) Norm (Normal) 11/05/24 18:27 Urine Ketones 1+ (Negative) H 11/05/24 18:27 Urine Blood Neg (Negative) 11/05/24 18:27 Urine Nitrate Negative (Negative) 11/05/24 18:27 Urine Bilirubin Neg (Negative) 11/05/24 18:27 Urine Urobilinogen Norm mg/dL (Negative) 11/05/24 18:27 Ur Leukocyte Esterase Negative (Negative) 11/05/24 18:27 Urine RBC 0-4 /hpf (0-2) H 11/05/24 18:27 Urine WBC 0-5 /hpf (0-5) 11/05/24 18:27 Ur Squamous Epith Cells 6-10 /hpf (0-5) 11/05/24 18:27 Calcium Oxalate Crystal 15-25 /hpf H 11/05/24 18:27 Amorphous Sediment Not Reportable 11/05/24 18:27 Urine Bacteria 2+ /hpf (NONE) H 11/05/24 18:27 Hyaline Casts 0.40 /lpf 11/05/24 18:27 All radiology interpretation(s) finalized by discharge Discharge Plan Discharge Patient Disposition: Home Clinical Impression: Chronic left flank pain Condition: Stable Prescriptions: No Action albuterol sulfate 90 mcg/actuation HFA aerosol inhaler 2 inh INHALATION Q4H PRN (Reason: shortness of breath or wheezing) Qty: 18 0RF promethazine 25 mg tablet 25 mg PO Q6H PRN (Reason: nausea and vomiting) Qty: 14 0RF amoxicillin-pot clavulanate 875-125 mg tablet 1 tab PO BID Qty: 20 0RF Discharge Orders: Discharge ED (Routine); Ordered 11/05/24 Ordered By: Hair Wyatt Referrals: Norma Reyna DO [Primary Care Provider] - Patient Instructions: Flank Pain (ED) Activity Restrictions/Additional Instructions: Please follow-up with your regular doctor for reevaluation as we discussed. Return with any new or worsening. 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
[2024-11-05 18:45] LABS: Bacteria Urine 2+ /hpf; WBC Urine 0-5 /hpf (0-5)
[2024-11-05] MEDS: ketorolac 60 mg/2 mL INJ 30 MG IVP (18:49)
[2024-11-05] MEDS: metoclopramide 5 mg/mL SDV 2 mL 10 MG IVP (18:49)
[2024-11-05] MEDS: iohexol 350 mg/mL 500 mL Btl (per mL) IV (19:33)
[2024-11-05 19:43] VITALS: BP 105/78; PULSE 95; RESP 16; O2SAT 100
[2024-11-05 19:48] LABS: Add Urine Microscopic? YES; Bilirubin Urine Neg (Negative); Blood Urine Neg (Negative); Glucose Urine UA Norm (Normal); Ketones Urine 1+ (Negative); Leukocyte Esterase Urine Negative (Negative); Nitrate Urine Negative (Negative); Protein Urine Trace (Negative); Specific Gravity, Urine 1.025 (1.005-1.030); Urine Appearance Clear (CLEAR); Urine Color Yellow (Yellow); Urobilinogen Urine Norm (Negative); pH Urine 5 (5-7)
[2024-11-05 19:49] LABS: Calcium Oxalate Crystals Urine 15-25 /hpf; RBC Urine 0-4 /hpf (0-2); UA Slide Review UA Slide Review Perf
[2024-11-05 20:56] VITALS: BP 95/64; PULSE 93; RESP 16; O2SAT 100
== END 2024-11-05 21:02 | disposition home or self-care (01) ==
PROVIDERS: Emergency Medicine; Emergency Provider Physician Assistant; PCP Family Medicine
DX: R10.9 Unspecified abdominal pain (principal)
CPT/HCPCS: 36415; 74177; 80053; 81001; 83690; 85025; 96374; 96375; 99285; J1885; J2765